=== PATIENT | female | born 1965 | race Caucasian/White ===

== ENCOUNTER → 2016-07-04 | Outpatient (CLI) | payer BC ==
--- NOTE | 2016-07-04 09:16 | MA ---
Screening Digital Mammogram With iCAD Analysis Clinical Indications: Routine screening. Technique: Standard cephalocaudal and mediolateral oblique projections were obtained. This examinatio n was processed by the iCAD computer aided detection system. Comparison: February 2015, January 2013, July 2011, November 2009, November 2007. Breast density: Type B; Scattered fibroglandular densities. Findings: CAD was reviewed. No masses, suspicious calcifications or other signs of malignancy are id entified. There has been no significant change in the appearance of either breast. Impression: Negative mammogram. BI-RADS 1. Recommendation: Routine mammographic screening in one year as long as physical examination [facility] Negative mammography should not preclude additional workup of a clinically suspicious finding. The patient's information is entered into a reminder system with a target due date for her next mammo gram.
== END ==
LOC: FIMAGING 08:16
DX: Z12.31 Encounter for screening mammogram for malignant neoplasm of breast (principal)
CPT/HCPCS: G0202

== ENCOUNTER 2017-01-17 13:26 | Emergency (ER) | payer BC ==
[2017-01-17 13:44] VITALS: TEMP 98.2
[2017-01-17] MEDS ORDERED: IBUPROFEN 600 MG TAB PO ONE (14:18)
[2017-01-17] MEDS ORDERED: BACITRACIN OINTMENT 1 PACKET TP ONE (14:27)
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
[2017-01-17 15:47] VITALS: BP 128/74; PULSE 89; RESP 18; O2SAT 97
== END 2017-01-17 15:47 | disposition home or self-care (01) ==
PROC: 2W21X4Z Dressing of Face using Bandage (ICD-10-PCS; principal; 2017-01-17)
DX: T20.20XA Burn of second degree of head, face, and neck, unspecified site, initial encounter (principal); T31.0 Burns involving less than 10% of body surface; X14.1XXA Other contact with hot air and other hot gases, initial encounter; Y92.009 Unspecified place in unspecified non-institutional (private) residence as the place of occurrence of the external cause

== ENCOUNTER → 2017-10-30 | Outpatient (CLI) | payer BC | LOC: BMCIMAGING 08:08 | PROVIDERS: ATTEND Internal Medicine Endocrinology, Diabetes & Metabolism | DX: Z12.31 Encounter for screening mammogram for malignant neoplasm of breast (principal) ==

== ENCOUNTER → 2018-04-05 | Outpatient (CLI) | payer BC | LOC: BMCIMAGING 08:52 | PROVIDERS: ATTEND Physician Assistant | DX: M25.561 Pain in right knee (principal) ==